=== PATIENT | male | born 1955 | race Caucasian/White ===

== ENCOUNTER 2024-01-09 09:53 | Observation (INO) ==
[~2024-01-09 09:53] MED LIST: BUPIVACAINE **LIPOSOME/PF 13.3 MG/ML (266MG/ 20ML) VIAL (RESTRICTED) INFIL SCH; Lidocaine 2% PF 5 ML VIAL ONE; Metoclopramide 5 MG/ML VIAL (10 mg) IV PRN; Midazolam 2 mg/2 ml VIAL 1 mg/ml 2 ml VIAL (2 mg) ONE; Naloxone 0.4 mg VIAL 0.4 mg/ml 1 ml VIAL IV PRN; Ondansetron 4 mg VIAL 2 MG/ML 2 ml VIAL IV PRN; Propofol 10 MG/ML 20 ML BTL ONE; Rocuronium 50 mg VIAL 10 mg/ml 5 ml VIAL (50 mg) ONE; fentaNYL 100 mcg/2 ml 50 MCG/ML VIAL IV PRN; fentaNYL 100 mcg/2 ml 50 MCG/ML VIAL ONE
[2024-01-09] MEDS ORDERED: Scopolamine 1 mg/72hr PATCH ONE (10:11)
[2024-01-09] MEDS ORDERED: ceFAZolin 2 GM PREMIX 2 GM/50 ML BAG ONE (10:11)
[2024-01-09 11:19] LABS: Rapid COVID-19 Molecular Undetected (Undetected)
[2024-01-09] MEDS ORDERED: Ondansetron 4 mg VIAL 2 MG/ML 2 ml VIAL IV PRN (12:22)
[2024-01-09] MEDS ORDERED: Bupivacaine 0.25% SDV 30 ML ONE (12:37)
[2024-01-09] MEDS ORDERED: Dexamethasone IV 4 MG/ML VIAL 1 ml VIAL ONE (13:27)
[2024-01-09] MEDS ORDERED: Ondansetron 4 mg VIAL 2 MG/ML 2 ml VIAL ONE (13:27)
[2024-01-09] MEDS ORDERED: HYDROmorphone 0.5 MG/0.5 ML SYRINGE ONE ×2 (13:30→13:35)
[2024-01-09] MEDS ORDERED: Rocuronium 50 mg VIAL 10 mg/ml 5 ml VIAL (50 mg) ONE (14:37)
[2024-01-09] MEDS ORDERED: fentaNYL 100 mcg/2 ml 50 MCG/ML VIAL ONE (16:41)
[2024-01-09] MEDS ORDERED: hydrALAZINE 20 mg/ml 1 ML Vial IV ONE (17:28)
[2024-01-09] MEDS: hydrALAZINE 20 mg/ml 1 ML Vial IV IV SLOW PU ONE ×2 (17:33→17:53)
[2024-01-09] MEDS ORDERED: hydrALAZINE 20 mg/ml 1 ML Vial IV IV SLOW PU PRN (17:46)
[2024-01-09 18:17] LABS: ABS Basophils 0.1 10^3/uL (0.0-0.1); ABS Lymphocytes 0.9 10^3/uL (1.0-4.8); ABS Monocytes 0.2 10^3/uL (0.0-1.1); ABS Neutrophils 10.3 10^3/uL (1.5-7.6); Eosinophil % 0.2 %; Hematocrit 36.3 % (38-53); Lymphocyte % 7.6 %; Mean Corpuscular Hgb Conc 32.9 g/dL (31-36); Platelet Count 310 10^3/uL (150-450); Red Blood Count 3.99 10^6/uL (4.06-5.63); Red Cell Distribution Width 14.2 % (12-17); White Blood Count 11.5 10^3/uL (3.6-10.2)
[2024-01-09] MEDS: Lactated Ringers 1000 ml BAG 1,000 ML IV SCH (18:35)
[2024-01-09] MEDS: Buffered Lidocaine 1% SYRIN 1 ml INTRADERM ONE (18:36)
[2024-01-09] MEDS: NS 0.9% 1000 ml BAG 1,000 ML IV SCH (18:45)
[2024-01-09 18:50] LABS: Calcium 8.5 mg/dL (8.6-10.3); Creatinine, Serum 2.33 mg/dL (0.67-1.17); Potassium 5.1 mmol/L (3.5-5.0); eGFR CKD-EPI 29.5 (>60)
[2024-01-09] MEDS: Scopolamine 1 mg/72hr PATCH TRANSDERM ONE (19:07)
[2024-01-09] MEDS: Magnesium Hydroxide LIQ 30 ML UDC PO SCH (21:37)
[2024-01-09] MEDS: Neomycin/Polym/Bacit TOP OINT 15 GM TOPICAL SCH (21:38)
[2024-01-10 09:57] VITALS: BP 109/73
== END 2024-01-10 11:35 | disposition home or self-care (01) ==
LOC: AA 09:53 → INTOOBSV 09:53 → SSU 12:22
PROVIDERS: ADMIT Urology; ATTEND Urology